=== PATIENT | male | born 1990 | race Caucasian/White ===

== ENCOUNTER 2020-05-25 20:20 | Emergency (ER) | payer OTHER ==
[~2020-05-25] VITALS: Ht 182.9 cm; Wt 135.6 kg
[2020-05-25 20:26] VITALS: BP 141/91
[2020-05-25] MEDS ORDERED: CLINDAMYCIN 600 MG/4 ML VIAL IM ONE (20:50)
--- NOTE | 2020-05-25 20:50 | NUR ---
SEEN AND EXAMINED BY RUTHIE WITH ORDER AND CARRIED OUT
[2020-05-25 21:35] VITALS: BP 121/78
--- NOTE | 2020-05-25 21:35 | NUR ---
Patient discharged with v/s stable. Written and verbal after care instructions given and explained. Patient alert, oriented and verbalized understanding of instructions. Ambulatory with steady gait. All questions addressed prior to discharge. ID band removed. Patient advised to follow up with PMD. Rx of CLINDAMYCIN given. Patient educated on indication of medication including possible reaction and side effects. Opportunity to ask questions provided and answered.
== END 2020-05-25 21:35 | disposition home or self-care (01) ==
LOC: MED 20:20
DX: K04.7 Periapical abscess without sinus (principal); I10 Essential (primary) hypertension
CPT/HCPCS: 96372; 99283; J3490